=== PATIENT | female | born 1945 | race Caucasian/White ===

== ENCOUNTER 2017-05-29 08:24 | Outpatient (CLI) | payer MEDICARE, BC | END 2017-05-29 08:25 | disposition home or self-care (01) | LOC: BICULT 08:24 | PROVIDERS: ATTEND Internal Medicine Gastroenterology | DX: K74.60 Unspecified cirrhosis of liver (principal); K59.03 Drug induced constipation; K76.0 Fatty (change of) liver, not elsewhere classified; Z86.010 Personal history of colon polyps; Z90.49 Acquired absence of other specified parts of digestive tract | CPT/HCPCS: 76705 ==

== ENCOUNTER 2017-06-05 06:28 | Day surgery (SDC) | payer MEDICARE, BC ==
[2017-06-04 14:46] VITALS: BMI 29.0
[2017-06-05 08:46] LABS: Hemoglobin 11.2 g/dL (12.0-16.0); Mean Corpuscular HGB CONC 33.3 g/dL (32.0-36.0); Mean Corpuscular Volume 99.1 fl (81.0-99.0); Mean Platelet Volume 10.7 fL (7.4-10.4); Platelet Count 38 thou/uL (130-400); RBC Distribution Width 14.6 % (11.5-14.5); White Blood Cell (WBC) Count 2.5 thou/uL (4.8-10.8)
[2017-06-05 08:49] LABS: INR-International Normal Ratio 1.6
[2017-06-05 09:17] LABS: ALT (SGPT) 20 U/L (8-55); AST (SGOT) 39 U/L (5-34); Alkaline Phosphatase 83 U/L (40-150); Anion Gap 11 mmol/L (10-20); BUN (Urea Nitrogen) 8 mg/dL (9.8-20.1); Bilirubin, Total 1.5 mg/dL (0.2-1.2); Calc. Creatinine Clearance 81 mL/min (70-130); Calcium 9.2 mg/dL (7.8-10.44); Carbon Dioxide 22 mmol/L (23-31); Chloride 108 mmol/L (98-107); Estimated GFR-MDRD 70; Globulin 3.5 g/dL (2.4-3.5); Glucose 103 mg/dL (83-110); Potassium 4.5 mmol/L (3.5-5.1); Protein, Total 6.5 g/dL (6.0-8.3); Sodium 136 mmol/L (136-145)
--- NOTE | 2017-06-05 12:05 | OP ---
DATE OF PROCEDURE: 06/05/2017 SURGEON: Dr. Wade August PROCEDURE: Esophagogastroduodenoscopy. PREOPERATIVE DIAGNOSES: Cirrhosis and portal hypertension, evaluate for esophageal varices. OPERATIVE NOTE: Informed consent was obtained from the patient. She was sedated with total intraven ous anesthesia. The bite block was placed and the endoscope was advanced easily to the second portio n of the duodenum and retroflexion was performed in the stomach. The esophagus was normal. The GE j unction was normal. The stomach was normal including retroflexed views. The pylorus and first and s econd portions of the duodenum were normal. IMPRESSION: Normal esophagogastroduodenoscopy. RECOMMENDATIONS: 1. Follow up in GI clinic. 2. Repeat EGD in 2 years for varices screening.
[2017-06-05] MEDS ORDERED: Lidocaine 1% PF 5 ML VIAL ONE (16:32)
== END 2017-06-05 12:25 | disposition home or self-care (01) ==
LOC: SDC 06:28
PROVIDERS: ATTEND Internal Medicine Gastroenterology
PROC: 0DJ08ZZ Inspection of Upper Intestinal Tract, Via Natural or Artificial Opening Endoscopic (ICD-10-PCS; principal; 2017-06-05)
DX: K74.60 Unspecified cirrhosis of liver (principal); K76.6 Portal hypertension; M19.90 Unspecified osteoarthritis, unspecified site; M54.9 Dorsalgia, unspecified; G89.29 Other chronic pain; M81.0 Age-related osteoporosis without current pathological fracture; G43.909 Migraine, unspecified, not intractable, without status migrainosus; M41.9 Scoliosis, unspecified; F32.9 Major depressive disorder, single episode, unspecified; L40.9 Psoriasis, unspecified; Z79.891 Long term (current) use of opiate analgesic; Z79.899 Other long term (current) drug therapy; Z88.1 Allergy status to other antibiotic agents; Z88.5 Allergy status to narcotic agent; Z91.018 Allergy to other foods; Z88.8 Allergy status to other drugs, medicaments and biological substances; Z98.1 Arthrodesis status; Z96.652 Presence of left artificial knee joint; Z90.11 Acquired absence of right breast and nipple; Z90.710 Acquired absence of both cervix and uterus; Z90.49 Acquired absence of other specified parts of digestive tract; Z90.89 Acquired absence of other organs; Z98.890 Other specified postprocedural states; Z85.3 Personal history of malignant neoplasm of breast; Z86.010 Personal history of colon polyps
CPT/HCPCS: 36430; 43235; 80053; 85027; 85610; 86850; 86900; 86901; P9035; 36415; J2001

== ENCOUNTER 2017-07-06 08:38 | Outpatient (CLI) | payer MEDICARE, BC ==
[2017-07-06] MEDS ORDERED: Iopamidol 370 76% 100 ML VIAL ONE (11:33)
== END 2017-07-06 08:39 | disposition home or self-care (01) ==
LOC: BICCT 08:38
PROVIDERS: ATTEND Internal Medicine Gastroenterology
DX: K74.60 Unspecified cirrhosis of liver (principal); D61.818 Other pancytopenia; R19.09 Other intra-abdominal and pelvic swelling, mass and lump; K59.09 Other constipation; R16.1 Splenomegaly, not elsewhere classified; K76.6 Portal hypertension; K46.9 Unspecified abdominal hernia without obstruction or gangrene; Z90.11 Acquired absence of right breast and nipple
CPT/HCPCS: 74177

== ENCOUNTER 2017-08-15 11:04 | Inpatient (IN) | payer MEDICARE, BC ==
[2017-08-15] MEDS ORDERED: ALPRAZolam 0.25 MG TAB PO SCH ×2 (13:30→14:00)
[2017-08-15] MEDS ORDERED: Ondansetron ODT 4 MG TAB PO PRN (13:33)
[2017-08-15] MEDS ORDERED: Senokot 8.6 MG TAB PO PRN (13:33)
[2017-08-15] MEDS ORDERED: Calcium Carbonate 500 MG ChewTAB PO PRN (13:33)
[2017-08-15] MEDS ORDERED: Ondansetron HCl/PF 4 MG/2 ML Vial IVP PRN (13:33)
[2017-08-15] MEDS ORDERED: Meropenem 1 GM in Sodium Chloride 0.9% 100 ML IVPB SCH (13:45)
[2017-08-15] MEDS ORDERED: Sodium Chloride 0.9% 1,000 ML IV SCH ×2 (13:45→13:54)
[2017-08-15] MEDS ORDERED: Vancomycin HCl 1 GM in Premix Bag 1 BAG IVPB SCH (13:45)
[2017-08-15] MEDS ORDERED: VANCOMYCIN IVPB PRN (13:49)
[2017-08-15] MEDS ORDERED: [UNRECOGNIZED DRUG - OTHER] IVPB PRN (13:49)
[2017-08-15] MEDS ORDERED: MEROPENEM 1 GM/50 ML 1 GM in Premix Bag 1 BAG IVPB SCH (14:00)
[2017-08-15 14:13] VITALS: BMI 32.1
[2017-08-15 14:21] LABS: #Eosinphils 0.2 thou/uL (0.0-0.7); #Monocytes 0.5 thou/uL (0.11-0.59); #Neutrophils 1.9 thou/uL (1.40-6.50); %Basophils 0.8 % (0.0-1.0); %Eosinophils 5.6 % (0.0-10.0); %Lymphocytes 28.4 % (21.0-51.0); %Monocytes 12.7 % (0.0-10.0); %Neutrophils 52.5 % (42.0-75.0); Hemoglobin 10.5 g/dL (12.0-16.0); Mean Corpuscular HGB CONC 33.8 g/dL (32.0-36.0); Mean Corpuscular Volume 97.7 fl (81.0-99.0); Mean Platelet Volume 8.8 fL (7.4-10.4); Platelet Count 59 thou/uL (130-400); Red Blood Cell (RBC) Count 3.18 mill/uL (4.20-5.40); White Blood Cell (WBC) Count 3.6 thou/uL (4.8-10.8)
[2017-08-15 14:23] LABS: INR-International Normal Ratio 1.4; Prothrombin Time 17.4 SEC (12.0-14.7)
[2017-08-15 14:24] LABS: PTT 42.3 SEC (22.9-36.1)
[2017-08-15 14:36] LABS: ALT (SGPT) 15 U/L (8-55); AST (SGOT) 23 U/L (5-34); Albumin 3.2 g/dL (3.4-4.8); Alkaline Phosphatase 92 U/L (40-150); Anion Gap 9 mmol/L (10-20); BUN (Urea Nitrogen) 12 mg/dL (9.8-20.1); Bilirubin, Total 1.5 mg/dL (0.2-1.2); Calc. Creatinine Clearance 84 mL/min (70-130); Calcium 9.2 mg/dL (7.8-10.44); Carbon Dioxide 24 mmol/L (23-31); Chloride 105 mmol/L (98-107); Estimated GFR-MDRD 66; Globulin 3.5 g/dL (2.4-3.5); Glucose 115 mg/dL (83-110); Protein, Total 6.7 g/dL (6.0-8.3); Sodium 134 mmol/L (136-145)
--- NOTE | 2017-08-15 16:04 | PDOC.EVN ---
Event Note - Event Note Event Note: Patient seen and examined. Note dictated. Full code. DPOA - self/family
--- NOTE | 2017-08-15 16:09 | ULT ---
BILATERAL LOWER EXTREMITY VENOUS DUPLEX EXAM: History: Bilateral leg edema and pain. FINDINGS: Real-time color doppler evaluation of the right and left lower extremities were performed from groin to calf. Exam is limited due to patient's intolerance for compression and body habitus. Examination i ncludes the common femoral, superficial and profunda femoral, saphenous, popliteal and trifurcation v eins. This shows patent deep venous systems with normal compressibility and augmentation. IMPRESSION: No evidence of DVT of either lower extremity. POS: C
[2017-08-15] MEDS ORDERED: Vancomycin HCl 1.75 GM in Sodium Chloride 0.9% 500 ML IVPB SCH (17:00)
--- NOTE | 2017-08-15 17:22 | HP ---
DATE OF ADMISSION: 08/15/2017 CHIEF COMPLAINT: Right lower extremity cellulitis. Patient failed outpatient therapy. HISTORY OF PRESENT ILLNESS: Patient is a 72-year-old female with cirrhosis, presented as a direct ad anayeli from Dr. Ruffin with above complaints. Over the last one week, the patient noticed redness over her right leg that is gradually progressing towards her thigh. She also had intermittent fever along with chills. Her temperature was around 10 0 degrees. She also hit a right big toe on the side of her bed. She denies any nausea, vomiting, di arrhea, altered mentation, cough, shortness of breath, wheezing, dysuria, hematuria, or urgency. Three days ago, the patient was seen by primary care physician and was started on Bactrim. Today, jyoti ibrahim was seen by her PCP and noticed the worsening of the cellulitis for which she was sent to the [facility] as a direct admit for IV antibiotics. PAST MEDICAL HISTORY: 1. Chronic hepatitis C with cirrhosis. 2. Chronic low back pain. 3. Hypertension. 4. Degenerative joint disease. 5. Depression/anxiety. 6. Chronic constipation. 7. Diet controlled diabetes mellitus type 2. 8. Essential tremors. PAST SURGICAL HISTORY: 1. Total abdominal hysterectomy with unilateral salpingo-oophorectomy in 1959. 2. Appendectomy. 3. Colonoscopy with polypectomy. 4. EGD. 5. Modified radical mastectomy ALLERGIES: The patient is allergic to FLEXERIL and CLARITHROMYCIN. SOCIAL HISTORY: Patient currently lives at home. She is a retired nurse. She denies any current us e of smoking, alcohol or drug use. FAMILY HISTORY: Negative for inheritable diseases. REVIEW OF SYSTEMS: The following complete review of systems was negative, unless otherwise mentioned in the HPI or below: Constitutional: Weight loss or gain, ability to conduct usual activities. Sk in: Rash, itching. Eyes: Double vision, pain. ENT/Mouth: Nose bleeding, neck stiffness, pain, te nderness. Cardiovascular: Palpitations, dyspnea on exertion, orthopnea. Respiratory: Shortness of breath, wheezing, cough, hemoptysis, fever or night sweats. Gastrointestinal: Poor appetite, abdom inal pain, heartburn, nausea, vomiting, constipation, or diarrhea. Genitourinary: Urgency, frequenc y, dysuria, nocturia. Musculoskeletal: Pain, swelling. Neurologic/Psychiatric: Anxiety, depressio n. Allergy/Immunologic: Skin rash, bleeding tendency. PHYSICAL EXAMINATION: VITAL SIGNS: Temperature 97.7, respirations of 18, pulse rate of 74, blood pressure of 127/73 with O 2 saturation of 100% on room air. GENERAL: A 72-year-old female in no significant distress. Some discomfort over her back and the rig ht leg. HEENT: Head atraumatic, normocephalic, sclerae are anicteric. Moist mucous membranes. No oral lesi on. NECK: Supple, no JVD appreciated. No carotid bruit. LUNGS: Clear to auscultation bilaterally, no wheezing, rales or rhonchi. HEART: S1, S2 present. Regular rate and rhythm. No significant rubs or gallops. ABDOMEN: Soft, nontender, bowel sounds present. EXTREMITIES: Bilateral lower extremity swelling with pitting edema. There is erythema over the post erior right leg extending to her right thigh medially. There is warmth over the right leg and the ri ght thigh. The right leg was also tender on palpation. SKIN: As discussed above. LYMPH NODES: No palpable lymph nodes in the neck. PERIPHERAL VASCULAR: Radial pulses palpable bilaterally. MUSCULOSKELETAL: No joint swelling or tenderness. LABORATORY FINDINGS: CBC showed WBC 3.6 with hemoglobin 10.5, hematocrit 31.1, platelets of 59. PT of 17.4, INR 1.4, PTT is 42.3. Chemistries showed sodium 134, potassium 4, chloride 105, bicarbonate 24, BUN 12, creatinine 0.85. Total bilirubin 1.5 with normal AST, ALT. Albumin 3.2, magnesium 2.0. IMAGING STUDIES: Bilateral lower extremity Doppler has been done, report pending at this time. CT s can of the abdomen last month showed splenomegaly with evidence of portal hypertension. IMPRESSION: 1. Right lower extremity cellulitis. Please note that patient failed outpatient therapy. 2. Chronic pain syndrome, on chronic narcotics. 3. Anxiety/depression, on scheduled Xanax. 4. Chronic hepatitis C with cirrhosis with portal hypertension, coagulopathy and hypoalbuminemia. 5. Mild hyponatremia. 6. Obesity with a BMI 32.1. 7. Diabetes mellitus type 2. 8. Pancytopenia secondary to cirrhosis. PLAN: The patient will be monitored on the medical floor. We will start her on vancomycin and merop enem. We will consult Infectious Disease. We will also rule out DVT due to significant swelling in bilateral lower extremities. Home medications will be resumed. Vital signs per protocol. Repeat la bs in a.m. Consult walking program. Plan of care was discussed with the patient in detail. She stated understanding.
[2017-08-15] MEDS ORDERED: METHOCARBAMOL PO SCH (18:00)
[2017-08-15] MEDS: Morphine ER 15 MG TAB PO SCH (18:30)
[2017-08-15] MEDS: Methocarbamol 500 MG TAB PO SCH (18:31)
[2017-08-15] MEDS: ALPRAZolam 0.25 MG TAB PO SCH ×2 (18:32→20:45)
[2017-08-15] MEDS ORDERED: cefTRIAXone\\ROCEPHIN 1 GM in Sodium Chloride 0.9% 100 ML IVPB SCH (18:45)
[2017-08-15] MEDS: cefTRIAXone\\ROCEPHIN 1 GM, Syringe 0.4 ML in Sterile Water 9.6 ML SLOW IVP SCH (20:35)
[2017-08-15] MEDS: Senokot S 8.6-50 MG TAB PO SCH (20:45)
[2017-08-16] MEDS: Morphine ER 15 MG TAB PO SCH ×5 (00:02→23:18)
[2017-08-16] MEDS: Methocarbamol 500 MG TAB PO SCH ×5 (00:02→23:20)
--- NOTE | 2017-08-16 00:30 | CON ---
DATE OF CONSULTATION: 08/15/2017 REASON FOR CONSULTATION: Cellulitis. HISTORY OF PRESENT ILLNESS: 72-year-old patient with a history of hypertension , breast cancer in remission after mastectomy, and liver cirrhosis who presented with right lower extremity cellulitis, having failed outpatient treatment with oral antimicrobial therapy. Apparently, she developed this change after hitting her right big toe on the side of the bed days before. The patient had been given Bactrim, but persisted with worsening of the inflammatory process and therefore was admitted. No headaches, visual symptoms , sore throat, odynophagia, dysphagia. No cough, sputum production, or chest pain. No abdominal pain or diarrhea. No genitourinary symptoms. No neurological symptoms. PAST MEDICAL HISTORY: Liver disease with cirrhosis, it is not clear what the etiology is. It is stated in Dr. Mary's note that it is secondary to chronic hepatitis C; however, her serology for hepatitis C is negative. History of hypertension, degenerative joint disease, depression, type 2 diabetes, tremors. PAST SURGICAL HISTORY: Hysterectomy, appendectomy, colonoscopy, EGD, radical mastectomy. ALLERGIES: FLEXERIL, CLARITHROMYCIN. SOCIAL HISTORY: Retired nurse. Never a smoker. No alcoholic beverage use. FAMILY HISTORY: Noncontributory. CURRENT MEDICATIONS: Include Tums, meropenem, morphine, Zofran, MiraLAX, Senokot, vancomycin. PHYSICAL EXAMINATION: VITAL SIGNS: Essentially normal. SKIN: Shows the area of circumferential erythema in the right leg, extending towards the medial aspect of the right thigh. Some tenderness. She has onychodystrophy and likely onychomycosis in toenails. No lymphadenopathy. HEENT: Ocular movements conjugate. Peripheral IV access. No Quiroz catheter. Oral cavity normal. NECK: Supple. No jugular vein distention. LUNGS: With symmetric clear breath sounds. HEART: S1, S2 without murmurs. ABDOMEN: Soft. Not distended or tender. No ascites. No bladder distention. EXTREMITIES: No joint inflammatory activity. Moves extremities equally except for some limitations from the inflammatory process. NEUROLOGIC: Cognitive function appears to be intact. LABORATORY DATA: White cell count is at 3.6, hemoglobin 10.5, platelets 59,000 , normal differential, and INR 1.4. Sodium 134, creatinine 0.85, glucose 115, bilirubin 1.5. Transaminase is normal. Alkaline phosphatase is 92, albumin 3.2. Again, the prior hepatitis B surface antibody was nonreactive in 2017. All the other hepatitis serologies were negative. She has a positive smooth muscle antibody titer of 23. She is borderline positive. Microbiology with thus far negative blood cultures. Venogram, no evidence of deep vein thrombosis. ASSESSMENT: Cirrhosis with cellulitis of right leg associated with venous insufficiency and onychodystrophy/onychomycosis. The most likely scenario is beta-hemolytic streptococcal infection, although gram negative rods can also play a role in patients with liver disease. We will switch her to Rocephin and discontinue the remainder antimicrobials once there is further improvement and transition to oral Keflex and then suppressive pen VK for a few months plus compression stockings. The patient has an implant in the left knee and she is at risk for development of an implant infection and should monitor for pain in that joint going forward. SABINA
[2017-08-16 04:44] LABS: Anion Gap 9 mmol/L (10-20); BUN (Urea Nitrogen) 9 mg/dL (9.8-20.1); Calc. Creatinine Clearance 94 mL/min (70-130); Calcium 8.1 mg/dL (7.8-10.44); Carbon Dioxide 22 mmol/L (23-31); Chloride 108 mmol/L (98-107); Estimated GFR-MDRD 75; Glucose 114 mg/dL (83-110); Sodium 135 mmol/L (136-145)
[2017-08-16] MEDS: ALPRAZolam 0.25 MG TAB PO SCH ×4 (07:58→20:53)
[2017-08-16] MEDS: Senokot S 8.6-50 MG TAB PO SCH ×2 (07:59→20:53)
[2017-08-16] MEDS: Polyethylene Glycol 3350 17 GM Packet PO SCH (07:59)
[2017-08-16] MEDS ORDERED: Non-Formulary Item 1 EACH (Linaclotide [Linzess] 145 MCG) PO SCH (09:00)
[2017-08-16] MEDS ORDERED: Linaclotide [Linzess] 145 MCG PO SCH (09:00)
--- NOTE | 2017-08-16 16:46 | PDOC.PN ---
- Subjective Encounter Start Date: 08/16/17 Encounter Start Time: 11:00 Patient seen and examined for cellulitis. No fever/chills. No new complaints. No overnight events - Objective Resuscitation Status: Resuscitation Status FULL:Full Resuscitation MAR Reviewed: Yes Vital Signs & Weight: Vital Signs (12 hours) Temp Pulse Resp BP Pulse Ox 08/16/17 12:00 98.4 F 71 16 147/78 H 98 08/16/17 08:00 98.6 F 78 16 98 08/16/17 07:51 98.6 F 78 16 148/78 H 98 Weight Weight 199 lb I&O: 08/15/17 08/16/17 08/17/17 06:59 06:59 06:59 Intake Total 1480 Balance 1480 Result Diagrams: 08/15/17 13:49 08/16/17 03:47 Radiology Reviewed by me: No (Doppler B/L LE - neg for DVT) Phys Exam - Physical Examination Constitutional: NAD Respiratory: no wheezing, no rhonchi Cardiovascular: RRR, no rub Gastrointestinal: soft, non-tender, positive bowel sounds Musculoskeletal: edema present Rt LE erythema improving Neurological: moves all 4 limbs Dx/Plan - Plan continue antibiotics, out of bed/ambulate, DVT proph w/SCDs IMPRESSION: 1. Right lower extremity cellulitis. (failed outpatient therapy) 2. Chronic pain syndrome, on chronic narcotics. 3. Anxiety/depression 4. Chronic hepatitis C with cirrhosis with portal hypertension, coagulopathy and hypoalbuminemia. 5. Mild hyponatremia. 6. Obesity with a BMI 32.1. 7. Diabetes mellitus type 2. 8. Pancytopenia secondary to cirrhosis. PLAN: * Atbx changed to Ceftriaxone * Cont to monitor * Blood cultures negative so far * Will need suppressive therapy Review of Systems - Review of Systems Constitutional: weakness (gen). negative: fever, chills, sweats, malaise, other Respiratory: negative: Cough, Dry, Shortness of Breath, Hemoptysis, SOB with Excertion, Pleuritic Pain, Sputum, Wheezing Cardiovascular: negative: chest pain, palpitations, orthopnea, paroxysmal nocturnal dyspnea, edema, light headedness, other Gastrointestinal: negative: Nausea, Vomiting, Abdominal Pain, Diarrhea, Constipation, Melena, Hematochezia, Other - Medications/Allergies Allergies/Adverse Reactions: Allergies Allergy/AdvReac Type Severity Reaction Status Date / Time cyclobenzaprine HCl Allergy Intermediate CONFUSION, Verified 06/04/17 14:46 [From Flexeril] DISORIENTATION clarithromycin [From Biaxin] Allergy THROAT Verified 06/04/17 14:46 CLOSES PEPPERS Allergy THROAT Uncoded 06/04/17 14:46 CLOSES, "hot peppers" Medications: Current Medications Alprazolam (Xanax) 0.25 mg PO QID [facility] Last Admin: 08/16/17 11:52 Dose: 0.25 mg Calcium Carbonate (Tums) 1,000 mg PO Q4H PRN PRN Reason: Heartburn or Indigestion Ceftriaxone Sodium 1 gm/ (Syringe 0.4 ml/ Sterile Water) 10 mls @ 120 mls/hr SLOW IVP 1999 [facility] Last Admin: 08/15/17 20:35 Dose: 10 mls Methocarbamol (Robaxin) 750 mg PO Q6HR [facility] Last Admin: 08/16/17 11:52 Dose: 750 mg Miscellaneous Medication (Pharmacy To Dose) 1 each IVPB PRN PRN PRN Reason: Pharmacy to dose Morphine Sulfate (Ms Contin) 15 mg PO Q6HR [facility] Last Admin: 08/16/17 11:51 Dose: 15 mg Ondansetron HCl (Zofran Odt) 4 mg PO Q6H PRN PRN Reason: Nausea/Vomiting Ondansetron HCl (Zofran) 4 mg IVP Q6H PRN PRN Reason: Nausea/Vomiting Linaclotide [Linzess (] 145 Mcg) 0 each PO DAILY [facility] Polyethylene Glycol (Miralax) 17 gm PO DAILY [facility] Last Admin: 08/16/17 07:59 Dose: 17 gm Senna (Senokot) 2 tab PO HSPRN PRN PRN Reason: Constipation Senna/Docusate Sodium (Senokot S) 1 tab PO BID [facility] Last Admin: 08/16/17 07:59 Dose: 1 tab Sodium Chloride (Flush - Normal Saline) 10 ml IVF Q12HR [facility] Last Admin: 08/16/17 07:59 Dose: 10 ml Sodium Chloride (Flush - Normal Saline) 10 ml IVF PRN PRN PRN Reason: Saline Flush
--- NOTE | 2017-08-16 20:28 | PRG ---
DATE OF SERVICE: 08/16/2017 SUBJECTIVE: Feeling much better today, less pain in the leg, able to walk. No respiratory symptoms. No diarrhea or abdominal pain. OBJECTIVE: VITAL SIGNS: Normal except for slight elevation of systolic blood pressure. LUNGS: Clear. HEART: S1, S2 regular rate. ABDOMEN: Soft. EXTREMITIES: Right leg with quite a bit of improvement in the erythema. LABORATORY DATA: White cell count has not been repeated. Chemistry with a creatinine of 0.76, sodiu m 135. Microbiology with negative blood cultures. ASSESSMENT AND DISCUSSION: Cirrhosis of unknown etiology, possibly steatohepatitis associated with c ellulitis in right leg plus venous insufficiency. Clear cut response. Continue Rocephin. Transitio n to Keflex tomorrow 500 mg 4 times daily for 10 days and then consider suppressive pen VK with compr ession stockings.
[2017-08-16] MEDS: cefTRIAXone\\ROCEPHIN 1 GM, Syringe 0.4 ML in Sterile Water 9.6 ML SLOW IVP SCH (20:49)
[2017-08-17] MEDS: Methocarbamol 500 MG TAB PO SCH ×2 (06:27→12:10)
[2017-08-17] MEDS: Morphine ER 15 MG TAB PO SCH ×2 (06:28→12:09)
[2017-08-17] MEDS: Polyethylene Glycol 3350 17 GM Packet PO SCH (08:22)
[2017-08-17] MEDS: ALPRAZolam 0.25 MG TAB PO SCH ×2 (08:22→12:10)
[2017-08-17] MEDS: Senokot S 8.6-50 MG TAB PO SCH (08:22)
[2017-08-17] MEDS ORDERED: cefTRIAXone\\ROCEPHIN 1 GM in Sodium Chloride 0.9% 100 ML IVPB SCH (12:15)
[2017-08-17 12:22] VITALS: BP 132/67; TEMP 98.7
[2017-08-17] MEDS ORDERED: cefTRIAXone\\ROCEPHIN 1 GM, Syringe 0.4 ML in Sterile Water 9.6 ML SLOW IVP SCH (14:00)
--- NOTE | 2017-08-19 07:36 | DIS ---
DATE OF ADMISSION: 08/15/2017 DATE OF DISCHARGE: 08/17/2017 DISCHARGE DISPOSITION: Home. FOLLOWUP: 1. Follow up with primary care physician, Dr. Ruffin in 1 week. 2. Follow up with Dr. Bautista after 10 days. DISCHARGE MEDICATIONS: 1. Keflex 500 mg every 6 hours for the next 10 days. 2. The patient will require chronic suppressive therapy after this. She will follow up with Dr. Eddie ramsey. 3. All other home medications were left unchanged. The patient was seen and examined on the day of discharge. Denies any new complaints, no chest pain, shortness of breath, palpitations. Right lower extremity erythema is gradually improving. BRIEF HOSPITAL COURSE: The patient is a 72-year-old female with cirrhosis, presented from Dr. Ruffin' s office as a direct admit for right lower extremity cellulitis. Patient failed outpatient therapy. Please refer to the history and physical dated 08/15/2017 for further details. The patient was admitted to the hospital with a diagnosis of right lower extremity cellulitis. She w as started on broad spectrum antibiotics that was changed to IV ceftriaxone by Dr. Bautista. Doppler of lower extremity were negative for DVT. She showed good improvement with ceftriaxone. Blood culture s have been negative so far. Primary care physician advised to follow up on the final blood cultures . The patient has been cleared for discharge by Infectious Disease. FINAL DIAGNOSES: 1. Right lower extremity cellulitis. Please note, the patient failed outpatient therapy. 2. Chronic pain syndrome on chronic narcotics. 3. Anxiety and depression. 4. Chronic hepatitis C with cirrhosis. 5. Portal hypertension, coagulopathy and hypoalbuminemia secondary to cirrhosis. 6. Mild hyponatremia. 7. Obesity with a BMI 32.1. 8. Venous stasis. 9. Diabetes mellitus type 2. 10. Pancytopenia, probably secondary to cirrhosis. Plan of care was discussed with the patient in detail. She stated understanding.
== END 2017-08-17 12:59 | disposition home or self-care (01) | DRG 603 ==
LOC: T4-A 11:56 → OBSVTOIN 11:56
PROVIDERS: ADMIT Internal Medicine; ATTEND Internal Medicine
DX: L03.115 Cellulitis of right lower limb (principal); K76.6 Portal hypertension; E87.1 Hypo-osmolality and hyponatremia; D61.818 Other pancytopenia; D68.4 Acquired coagulation factor deficiency; K74.60 Unspecified cirrhosis of liver; G89.4 Chronic pain syndrome; F41.9 Anxiety disorder, unspecified; F32.9 Major depressive disorder, single episode, unspecified; B18.2 Chronic viral hepatitis C; E88.09 Other disorders of plasma-protein metabolism, not elsewhere classified; E66.9 Obesity, unspecified; Z68.32 Body mass index [BMI] 32.0-32.9, adult; I87.8 Other specified disorders of veins; E11.9 Type 2 diabetes mellitus without complications; K59.09 Other constipation; Z85.3 Personal history of malignant neoplasm of breast; L60.3 Nail dystrophy; B35.1 Tinea unguium
CPT/HCPCS: 36415; 80048; 80053; 83735; 85025; 85610; 85730; 87040; 93970; A4216; J0696; J2185; J3370; J7050

== ENCOUNTER 2017-10-11 05:49 | Inpatient (IN) | payer MEDICARE, BC ==
[2017-10-11] MEDS ORDERED: Fentanyl 100 MCG/2 ML VIAL ONE (06:41)
[2017-10-11 07:03] LABS: #Eosinphils 0.1 thou/uL (0.0-0.7); #Lymphocytes 1.1 thou/uL (1.20-3.40); #Monocytes 0.5 thou/uL (0.11-0.59); #Neutrophils 2.3 thou/uL (1.40-6.50); %Basophils 0.3 % (0.0-1.0); %Lymphocytes 27.9 % (21.0-51.0); %Monocytes 12.6 % (0.0-10.0); %Neutrophils 57.2 % (42.0-75.0); Hemoglobin 10.3 g/dL (12.0-16.0); Mean Corpuscular HGB CONC 34.5 g/dL (32.0-36.0); Mean Corpuscular Hemoglobin 32.7 pg (27.0-31.0); Mean Corpuscular Volume 94.7 fL (78.0-98.0); Mean Platelet Volume 10.2 fL (7.4-10.4); Platelet Count 36 thou/uL (130-400); RBC Distribution Width 14.2 % (11.5-14.5); Red Blood Cell (RBC) Count 3.15 mill/uL (4.20-5.40); White Blood Cell (WBC) Count 3.9 thou/uL (4.8-10.8)
[2017-10-11 07:07] LABS: INR-International Normal Ratio 1.8; PTT 44.4 SEC (22.9-36.1); Prothrombin Time 21.2 SEC (12.0-14.7)
[2017-10-11 07:47] LABS: ALT (SGPT) 19 U/L (8-55); AST (SGOT) 29 U/L (5-34); Alkaline Phosphatase 89 U/L (40-150); Anion Gap 10 mmol/L (10-20); BUN (Urea Nitrogen) 16 mg/dL (9.8-20.1); Bilirubin, Total 2.4 mg/dL (0.2-1.2); Calc. Creatinine Clearance 0 mL/min (70-130); Calcium 8.5 mg/dL (7.8-10.44); Carbon Dioxide 22 mmol/L (23-31); Chloride 108 mmol/L (98-107); Estimated GFR-MDRD 77; Globulin 3.3 g/dL (2.4-3.5); Glucose 118 mg/dL (83-110); Lipase 16 U/L (8-78); Protein, Total 6.3 g/dL (6.0-8.3); Sodium 137 mmol/L (136-145)
[2017-10-11] MEDS ORDERED: ISOVUE-370 76%-LOCM 1 ML ONE (09:39)
[2017-10-11 09:49] LABS: Bilirubin Negative (Negative); Blood, Urine Trace (Negative); Clarity CLEAR (Clear); Glucose, Urine (Dipstick) Negative (Negative); Leukocyte Trace (Negative); Nitrite Negative (Negative); Protein, Urine (Dipstick) Negative (Neg-Trace); Specific Gravity, Urine 1.014 (1.002-1.036)
[2017-10-11 09:52] LABS: Bacteria/HPF None Seen HPF (None Seen); Hyaline Casts/LPF 0-3 HYALINE CAST LPF (0-3 Hyaline); Pathc Cast-AUWi Flag 0.58 (0-2.49); Squamous Epithelial 0-3 HPF (0-3); WBC/HPF 0-3 HPF (0-3)
--- NOTE | 2017-10-11 10:02 | CT ---
CT OF THE CHEST WITH CONTRAST CT ABDOMEN AND PELVIS WITH CONTRAST: COMPARISON: 07/06/17 CT abdomen/pelvis. Please note that the exams performed at [facility] we re a CT of the cervical spine and head and no abdominal or chest CT was performed. TECHNIQUE: 1. Multiple contiguous axial images were obtained in a CT of the chest with contrast. Coronal refor mats were performed. 2. Multiple contiguous axial images were obtained in a CT of the abdomen and pelvis with contrast. Coronal reformats were performed. FINDINGS: CT CHEST: Calcified granulomas are seen in the left upper lobe and right lower lobe. No suspicious pulmonary n odules are seen. No infiltrates are present. No pneumothorax or pleural effusion are seen. The heart is normal in size without focal cardiac abnormality. No hilar or mediastinal lymphadenopat hy are seen. No acute osseous abnormality of the bones of the thorax are seen. Degenerative changes are seen in t he thoracic spine. The chest wall soft tissues are unremarkable. CT ABDOMEN/PELVIS: Fluid is seen surrounding the duodenum. There appears to be diffuse soft tissue anasarca. The liver is nodular in appearance. The gallbladder is not seen and has been removed. The spleen is enlarged measuring approximately 18 cm in length. The kidneys, adrenal glands, and pancreas are unremarkable . No free air is seen in the abdomen or pelvis. The visualized large and small bowel are unremarkable. No abdominal or pelvic lymphadenopathy are se en. Atherosclerotic calcifications are seen in the aorta. The patient is status post hysterectomy. Degenerative changes are seen in the spine. There is scoliotic curvature of the spine. No acute oss eous abnormality is seen. There is a small fat-containing umbilical hernia. IMPRESSION: 1. No evidence of acute intrathoracic abnormality. 2. There is nonspecific free fluid surrounding the duodenum. This could be secondary to duodenitis. This could also be secondary to a small amount of ascites given the findings below. 3. Cirrhosis with sequelae of portal hypertension including splenomegaly. POS: [facility]
[2017-10-11] MEDS ORDERED: Ondansetron HCl/PF 4 MG/2 ML Vial IVP PRN ×2 (11:12→11:28)
[2017-10-11] MEDS ORDERED: Ondansetron ODT 4 MG TAB PO PRN ×2 (11:13→11:28)
[2017-10-11] MEDS ORDERED: Acetaminophen 325 MG TAB PO PRN ×2 (11:13→11:28)
[2017-10-11] MEDS ORDERED: Sodium Chloride 0.9% 1,000 ML IV SCH (11:15)
[2017-10-11] MEDS ORDERED: Artificial Tears 18 DROP/0.9 ML EA EYE PRN (11:28)
[2017-10-11] MEDS ORDERED: Zolpidem Tartrate 5 MG TAB PO PRN (11:28)
[2017-10-11] MEDS ORDERED: Eucerin (Mineral Oil/Petrolatum,White) 30 gm Jar TOP PRN (11:28)
[2017-10-11] MEDS ORDERED: Chloraseptic Spray 180 ml Bottle PO PRN (11:28)
[2017-10-11] MEDS ORDERED: Mag-Al 1200 mg/1200 mg/30 ML UDCUP PO PRN (11:28)
[2017-10-11] MEDS ORDERED: Diabetic Tussin 200 MG/10 ML UDCUP PO PRN (11:28)
[2017-10-11] MEDS ORDERED: Loperamide HCl 2 MG CAP PO PRN (11:28)
[2017-10-11] MEDS ORDERED: Milk Of Magnesia 30 ML UDCUP PO PRN (11:28)
[2017-10-11] MEDS ORDERED: Loratadine 10 MG TAB PO PRN (11:28)
[2017-10-11] MEDS ORDERED: Sodium Chloride 0.65% Nasal 44 ML BOT EA NARE PRN (11:28)
[2017-10-11] MEDS ORDERED: Senokot 8.6 MG TAB PO PRN (11:28)
[2017-10-11] MEDS ORDERED: hydrALAZINE 20 MG/ML VIAL SLOW IVP PRN (11:28)
[2017-10-11 12:09] VITALS: BMI 31.6
[2017-10-11] MEDS: D5 0.9% NS w/ 20 mEq KCl 1,000 ML IV SCH (12:37)
[2017-10-11] MEDS ORDERED: Methocarbamol 500 MG TAB PO PRN (13:50)
[2017-10-11] MEDS: Furosemide 20 MG TAB PO SCH (14:34)
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
[2017-10-11] MEDS: Potassium Chloride 20 MEQ TAB PO SCH (16:08)
[2017-10-11] MEDS ORDERED: Propranolol 40 MG TAB PO SCH (21:00)
[2017-10-11] MEDS: Propranolol 10 MG TAB PO SCH (22:37)
[2017-10-11] MEDS: Famotidine/PF 20 mg/2ml Vial SLOW IVP SCH (22:38)
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
[2017-10-12] MEDS: D5 0.9% NS w/ 20 mEq KCl 1,000 ML IV SCH ×2 (01:55→14:37)
[2017-10-12 04:54] LABS: ALT (SGPT) 15 U/L (8-55); AST (SGOT) 23 U/L (5-34); Albumin 2.7 g/dL (3.4-4.8); Alkaline Phosphatase 84 U/L (40-150); Anion Gap 9 mmol/L (10-20); BUN (Urea Nitrogen) 12 mg/dL (9.8-20.1); Bilirubin, Total 1.6 mg/dL (0.2-1.2); Calc. Creatinine Clearance 94 mL/min (70-130); Calcium 7.8 mg/dL (7.8-10.44); Carbon Dioxide 21 mmol/L (23-31); Chloride 110 mmol/L (98-107); Estimated GFR-MDRD 78; Glucose 125 mg/dL (83-110); Potassium 3.6 mmol/L (3.5-5.1); Protein, Total 5.7 g/dL (6.0-8.3); Sodium 136 mmol/L (136-145)
[2017-10-12 05:12] LABS: Band 5 % (5-11); Eosinophils 6 % (0-10); Hemoglobin 10.2 g/dL (12.0-16.0); Lymphocytes 30 % (21-51); MDiff Complete? YES; Mean Corpuscular HGB CONC 34.1 g/dL (32.0-36.0); Mean Corpuscular Hemoglobin 32.5 pg (27.0-31.0); Mean Corpuscular Volume 95.2 fL (78.0-98.0); Mean Platelet Volume 9.8 fL (7.4-10.4); Monocytes 7 % (0-10); Neutrophil 52 % (42-75); PLT Morphology Comment Appears Decreased; Platelet Count 35 thou/uL (130-400); RBC Distribution Width 14.3 % (11.5-14.5); Red Blood Cell (RBC) Count 3.15 mill/uL (4.20-5.40); White Blood Cell (WBC) Count 4.1 thou/uL (4.8-10.8)
[2017-10-12] MEDS: Furosemide 20 MG TAB PO SCH ×2 (09:29→14:35)
[2017-10-12] MEDS: HYDROcodone/Acetaminophen 10/325 mg Tablet PO PRN ×3 (09:29→21:49)
[2017-10-12] MEDS: Propranolol 10 MG TAB PO SCH ×2 (09:30→20:23)
[2017-10-12] MEDS: Pantoprazole 40 MG VIAL IVP SCH (09:30)
[2017-10-12] MEDS: Potassium Chloride 20 MEQ TAB PO SCH ×2 (09:30→17:05)
[2017-10-12] MEDS ORDERED: PROPOFOL 200 MG/20 ML VIAL ONE (10:12)
[2017-10-12] MEDS ORDERED: Lidocaine 1% PF 5 ML VIAL ONE (10:12)
[2017-10-12] MEDS: Famotidine/PF 20 mg/2ml Vial SLOW IVP SCH (10:40)
--- NOTE | 2017-10-12 11:13 | PDOC.PN ---
- Subjective Encounter Start Date: 10/12/17 Encounter Start Time: 09:45 -: old records requested/rev Patient seen and examined for epigastric pain, today she feels more better. No new complaints. No overnight events - Objective Resuscitation Status: Resuscitation Status FULL:Full Resuscitation MAR Reviewed: Yes Vital Signs & Weight: Vital Signs (12 hours) Temp Pulse Resp BP Pulse Ox 10/12/17 07:56 98.7 F 56 L 14 174/77 H 96 10/12/17 04:16 98.8 F 56 L 16 143/74 H 97 10/12/17 00:27 98.8 F 56 L 16 146/90 H 97 Result Diagrams: 10/12/17 04:03 10/12/17 04:03 Phys Exam - Physical Examination Constitutional: NAD HEENT: PERRLA, moist MMs, sclera anicteric Neck: no JVD, supple Respiratory: no wheezing, no rales, no rhonchi Cardiovascular: RRR, no significant murmur, no rub Gastrointestinal: soft, non-tender, no distention, positive bowel sounds Musculoskeletal: no edema, pulses present Neurological: non-focal, normal sensation, moves all 4 limbs Psychiatric: normal affect, A&O x 3 Skin: no rash, normal turgor Dx/Plan (1) Epigastric abdominal pain Code(s): R10.13 - EPIGASTRIC PAIN Status: Acute (2) Coagulopathy Status: Chronic (3) Anxiety Code(s): F41.9 - ANXIETY DISORDER, UNSPECIFIED Status: Chronic (4) Chronic back pain Code(s): M54.9 - DORSALGIA, UNSPECIFIED; G89.29 - OTHER CHRONIC PAIN Status: Chronic (5) Cirrhosis of liver Code(s): K74.60 - UNSPECIFIED CIRRHOSIS OF LIVER Status: Chronic (6) Obesity (BMI 30.0-34.9) Code(s): E66.9 - OBESITY, UNSPECIFIED Status: Chronic (7) Pancytopenia Code(s): D61.818 - OTHER PANCYTOPENIA Status: Chronic (8) Hypokalemia Code(s): E87.6 - HYPOKALEMIA Status: Resolved - Plan cont current plan of care * today as per GI, plan for EGD * overall doing well * if EGD negative and pt continue to feel better later today, then possible discharge today or early tomorrow morning * medication reviewed as below * symptomatic treatment * ambulate today. Review of Systems - Review of Systems Eyes: negative: Pain, Vision Change, Conjunctivae Inflammation, Eyelid Inflammation, Redness, Other ENT: negative: Ear Pain, Ear Discharge, Nose Pain, Nose Discharge, Nose Congestion, Mouth Pain, Mouth Swelling, Throat Pain, Throat Swelling, Other Respiratory: negative: Cough, Dry, Shortness of Breath, Hemoptysis, SOB with Excertion, Pleuritic Pain, Sputum, Wheezing Cardiovascular: negative: chest pain, palpitations, orthopnea, paroxysmal nocturnal dyspnea, edema, light headedness, other Gastrointestinal: negative: Nausea, Vomiting, Abdominal Pain, Diarrhea, Constipation, Melena, Hematochezia, Other Genitourinary: negative: Dysuria, Frequency, Incontinence, Hematuria, Retention , Other Musculoskeletal: negative: Neck Pain, Shoulder Pain, Arm Pain, Back Pain, Hand Pain, Leg Pain, Foot Pain, Other Skin: negative: Rash, Lesions, Hira, Bruising, Other - Medications/Allergies Allergies/Adverse Reactions: Allergies Allergy/AdvReac Type Severity Reaction Status Date / Time cyclobenzaprine HCl Allergy Intermediate CONFUSION, Verified 10/11/17 12:08 [From Flexeril] DISORIENTATION clarithromycin [From Biaxin] Allergy THROAT Verified 10/11/17 12:08 CLOSES PEPPERS Allergy THROAT Uncoded 10/11/17 12:08 CLOSES, "hot peppers" Medications: Current Medications Acetaminophen (Tylenol) 650 mg PO Q4H PRN PRN Reason: Headache/Fever or Pain Hydrocodone Bitart/Acetaminophen ([place] 10/325) 1 tab PO Q4H PRN PRN Reason: Moderate Pain (4-6) Last Admin: 10/12/17 09:29 Dose: 1 tab Al Hydroxide/Mg Hydroxide (Maalox) 30 ml PO Q6H PRN PRN Reason: Heartburn or Indigestion Alprazolam (Xanax) 0.25 mg PO QIDPRN PRN PRN Reason: Anxiety/Restlessness/Sleep Artificial Tears (Tears Naturale) 0 drop EA EYE PRN PRN PRN Reason: Dry Eyes Famotidine (Pepcid) 20 mg SLOW IVP Q12HR RADHIKA Last Admin: 10/11/17 22:38 Dose: 20 mg Furosemide (Lasix) 20 mg PO 0900,1400 RADHIKA Last Admin: 10/12/17 09:29 Dose: 20 mg Guaifenesin (Robitussin Sf) 200 mg PO Q4H PRN PRN Reason: Cough Hydralazine HCl (Apresoline) 10 mg SLOW IVP Q4H PRN PRN Reason: Systolic BP > 180 Potassium Chloride/Dextrose/Sod Cl (D5 0.9% Ns W/ 20 Meq Kcl) 1,000 mls @ 75 mls/hr IV .[id number] [facility] Last Admin: 10/12/17 01:55 Dose: 1,000 mls Loperamide HCl (Imodium) 2 mg PO PRN PRN PRN Reason: Diarrhea/Loose Stools Loratadine (Claritin) 10 mg PO DAILYPRN PRN PRN Reason: Sinus Symptoms Magnesium Hydroxide (Milk Of Magnesium) 30 ml PO DAILYPRN PRN PRN Reason: Constipation Methocarbamol (Robaxin) 750 mg PO Q12H PRN PRN Reason: Muscle Spasm Mineral Oil/White Petrolatum (Eucerin Cream) 0 gm TOP BIDPRN PRN PRN Reason: Dry Skin Morphine Sulfate (Morphine) 2 mg SLOW IVP Q4H PRN PRN Reason: Severe Pain (7-10) Last Admin: 10/12/17 06:02 Dose: 2 mg Ondansetron HCl (Zofran Odt) 4 mg PO Q6H PRN PRN Reason: Nausea/Vomiting Ondansetron HCl (Zofran) 4 mg IVP Q6H PRN PRN Reason: Nausea/Vomiting Pantoprazole Sodium (Protonix) 40 mg IVP DAILY [facility] Last Admin: 10/12/17 09:30 Dose: 40 mg Phenol (Chloraseptic [place] 180 Ml Bot) 0 ml PO PRN PRN PRN Reason: Sore Throat Potassium Chloride (K-Dur) 20 meq PO BID-[facility] Last Admin: 10/12/17 09:30 Dose: Not Given Propranolol HCl (Inderal) 30 mg PO BID [facility] Last Admin: 10/12/17 09:30 Dose: 30 mg Senna (Senokot) 2 tab PO HSPRN PRN PRN Reason: Constipation Sodium Chloride (Flush - Normal Saline) 10 ml IVF Q12HR [facility] Last Admin: 10/12/17 09:36 Dose: 10 ml Sodium Chloride (Flush - Normal Saline) 10 ml IVF PRN PRN PRN Reason: Saline Flush Sodium Chloride ([place] Nasal [place] 0.65%) 0 ml EA NARE QIDPRN PRN PRN Reason: Nasal Congestion Sodium Chloride (Flush - Normal Saline) 10 ml IVF PRN PRN PRN Reason: Saline Flush Zolpidem Tartrate (Ambien) 5 mg PO HSPRN PRN PRN Reason: Insomnia
[2017-10-12] MEDS ORDERED: Ondansetron HCl/PF 4 MG/2 ML Vial IVP PRN (13:15)
--- NOTE | 2017-10-12 13:45 | OP ---
DATE OF PROCEDURE: 10/12/2017 PROCEDURE: Esophagogastroduodenoscopy with biopsies. INDICATION FOR PROCEDURE: Abnormal GI imaging, duodenitis, abdominal pain. DESCRIPTION OF PROCEDURE: After the risks and benefits of the procedure were explained to the patien t including risks of bleeding, infection, perforation, reaction to anesthesia and/or pain, informed c onsent was obtained. The patient was then taken back to the endoscopy suite where deep sedation was administered via propofol and anesthesia support. Once adequate sedation was achieved, the standard gastroscope was introduced into the mouth with intubation of the esophagus, stomach and the proximal small intestine with the findings listed below. The patient tolerated the procedure well with no imm ediate perioperative complications. FINDINGS: ESOPHAGUS: Normal mucosa was seen in the proximal, mid and distal esophagus. There was no evidence of erosions, ulcerations, mass lesions or active/recent bleeding. Small (grade I) esophageal varices were seen in the distal esophagus that completely flattened with insufflation of air. STOMACH: Mildly increased mucosal erythema was seen in the gastric cardia, fundus, body proximal ant rum and incisura without associated erosions or ulcerations. Multiple biopsies were taken for evalua tion of possible H. pylori status. Normal appearing mucosa was seen in the prepyloric region. No ga stric varices were seen on gastric retroflexion. DUODENUM: Multiple small scattered superficial ulcerations were seen in the duodenal bulb and extend ing into the duodenal sweep without any evidence of active/recent bleeding nor high risk stigmata of bleeding. There was minimal surrounding mucosal erythema associated with these ulcerations. Otherwi se, there was no evidence of mass, lesions or active/or recent bleeding in either duodenal wall or th e second portion of the duodenum. Normal appearing mucosa was seen in the second portion of the duod enum. IMPRESSION: 1. Grade I, small, distal esophageal varices. 2. Mild mucosal erythema seen throughout the stomach consistent with mild portal hypertensive gastro roxann. 3. Multiple superficial scattered ulcerations seen in the duodenal bulb and duodenal sweep concernin g for H. pylori versus NSAID use. 4. No evidence of gastric varices seen during this examination. RECOMMENDATIONS: 1. We will follow up on biopsy results and if positive for H. pylori, would treat with triple therap y. 2. Pain control per primary team. 3. We would continue patient on PPI daily and continue that to the outpatient status. 4. We would continue to trend hemoglobin and hematocrit and transfuse as necessary to maintain an he moglobin and hematocrit of 7/21 while the patient is hospitalized. 5. We would continue to monitor for signs of active gastrointestinal bleeding. 6. If the patient's abdominal pain is improving, the patient can be discharged to home with follow u p in the GI Clinic as an outpatient given the low risk of bleeding noted on the duodenal ulcerations.
[2017-10-12] MEDS: ALPRAZolam 0.25 MG TAB PO PRN (15:30)
[2017-10-12] MEDS: Famotidine 20 MG TAB PO SCH (20:20)
[2017-10-13] MEDS: HYDROcodone/Acetaminophen 10/325 mg Tablet PO PRN ×2 (03:53→08:09)
[2017-10-13] MEDS: Famotidine 20 MG TAB PO SCH (08:00)
[2017-10-13] MEDS: Pantoprazole 40 MG VIAL IVP SCH (08:00)
[2017-10-13] MEDS: Propranolol 10 MG TAB PO SCH (08:00)
[2017-10-13] MEDS: Furosemide 20 MG TAB PO SCH (08:01)
[2017-10-13] MEDS: Potassium Chloride 20 MEQ TAB PO SCH (08:01)
[2017-10-13] MEDS: ALPRAZolam 0.25 MG TAB PO PRN (08:10)
[2017-10-13] MEDS ORDERED: ALPRAZolam 0.25 MG TAB PO PRN (09:16)
[2017-10-13] MEDS ORDERED: Non-Formulary Item 1 EACH (Linaclotide [Linzess] 145 MCG) PO PRN (09:16)
[2017-10-13 12:16] VITALS: BP 151/74; TEMP 97.8
--- NOTE | 2017-10-13 15:20 | EKG ---
Test Reason : Blood Pressure : / mmHG Vent. Rate : 074 BPM Atrial Rate : 074 BPM P-R Int : 128 ms QRS Dur : 084 ms QT Int : 414 ms P-R-T Axes : -35 017 032 degrees QTc Int : 459 ms Unusual P axis, possible ectopic atrial rhythm Abnormal ECG Confirmed by IRINEO BOURNE MD ([id number]), editor managing newspaper RUDY GODINEZ ([id number]) on 10/13/2017 3:19:48 PM Referred By: Confirmed By:IRINEO BOURNE MD
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
== END 2017-10-13 12:57 | disposition home or self-care (01) | DRG 392 ==
LOC: ERS 05:49 → T4-A 09:17
PROVIDERS: ADMIT Internal Medicine; ATTEND Internal Medicine
PROC: 0DB68ZX Excision of Stomach, Via Natural or Artificial Opening Endoscopic, Diagnostic (ICD-10-PCS; principal; 2017-10-12)
DX: K29.50 Unspecified chronic gastritis without bleeding (principal); K76.6 Portal hypertension; I85.10 Secondary esophageal varices without bleeding; D61.818 Other pancytopenia; N39.0 Urinary tract infection, site not specified; K26.9 Duodenal ulcer, unspecified as acute or chronic, without hemorrhage or perforation; B18.2 Chronic viral hepatitis C; K74.60 Unspecified cirrhosis of liver; E66.9 Obesity, unspecified; Z68.30 Body mass index [BMI] 30.0-30.9, adult; F41.9 Anxiety disorder, unspecified; E87.6 Hypokalemia
CPT/HCPCS: 36415; 71260; 74177; 80053; 81003; 81015; 83690; 85025; 85610; 85730; 88305; 88312; 93005; 96361; 96374; 96375; 96376; A4216; C9113; J2001; J2270; J2704; J3010; S0028